=== PATIENT | female | born 1950 | race African-American/Black ===

== ENCOUNTER 2023-03-24 08:04 | Observation (INO) | payer MEDICARE ==
[2023-03-21 12:00] LABS: BASOPHILS % 0.7 % (0.0-1.0); EOSINOPHILS # (AUTO) 0.2 (0.0-0.4); EOSINOPHILS % 2.5 % (0.0-6.0); HEMATOCRIT 36.2 % (34.2-44.1); HEMOGLOBIN 11.2 g/dL (12.0-16.0); LYMPHOCYTES # (AUTO) 1.5 (1.0-3.2); MEAN CORPUSCULAR HEMOGLOBIN 23.3 pg (28-32); MEAN CORPUSCULAR HGB CONC 30.9 g/dL (31-35); MEAN CORPUSCULAR VOLUME 75.4 fL (81-99); MONOCYTES # (AUTO) 0.7 (0.2-0.8); MONOCYTES % 11.1 % (4.4-11.3); NEUTROPHILS # (AUTO) 3.5 (2.1-6.9); PLATELET COUNT 299 x10e3/uL (140-360); RED CELL DISTRIBUTION WIDTH 14.4 % (11.7-14.4)
[2023-03-21 12:20] LABS: CALCIUM 9.6 mg/dL (8.4-10.2); CREATININE, SERUM 0.88 mg/dL (0.57-1.11)
[~2023-03-24 08:04] MED LIST: ASPIRIN325 MG PO; ASPIRIN81 MG PO; GABAPENTIN100 MG PO; HYDROCHLOROTHIA25 MG PO; LISINOPRIL5 MG PO; METAMUCIL FIBE3.4 GM PO; METFORMIN HCL500 MG PO; MULTI-VITAMIN1 EACH PO; OZEMPIC0.25 MG/0. SC; ROPIVACAINE 246.25 MG, EPINEPHRINE HCL 1:1000 1ML 0.5 MG, CLONIDINE HCL 0.08 MG, KETORO... INJ ONE; SIMVASTATIN20 MG PO; SODIUM CHLORIDE 0.9% 500ML 500 ML ONE; TRANEXAMIC ACID 20 ML ONE; Vancomycin IV 1,000 MG ONE
[2023-03-24] MEDS ORDERED: CELECOXIB 200 MG CAP ONE (08:36)
[2023-03-24] MEDS ORDERED: DEXAMETHASONE SOD PHOS 10 MG/1 ML VIAL ONE ×2 (08:37→11:59)
[2023-03-24] MEDS ORDERED: CEFAZOLIN SODIUM 2 GM ONE ×2 (08:37→14:08)
[2023-03-24] MEDS ORDERED: ACETAMINOPHEN 1000 MG/100 ML 100 ML IV ONE (08:37)
[2023-03-24] MEDS ORDERED: GABAPENTIN 300 MG CAP ONE ×2 (08:37→08:42)
[2023-03-24] MEDS ORDERED: LACTATED RINGER'S 1,000 ML ONE (08:38)
[2023-03-24] MEDS ORDERED: FENTANYL CITRATE/PF 100MCG/2 ML INJ ONE ×3 (10:10→12:15)
[2023-03-24] MEDS ORDERED: MIDAZOLAM HCL 2 MG/2 ML VIAL ONE (10:10)
[2023-03-24] MEDS ORDERED: DEXAMETHASONE SOD PHOS INJ 4 MG/ML SDV ONE (10:10)
[2023-03-24] MEDS ORDERED: SEVOFLURANE INHAL SOLN 250 ML PEN BTL ONE (11:54)
[2023-03-24] MEDS ORDERED: KETOROLAC TROMETHAMINE 30 MG/ML VIAL ONE (11:54)
[2023-03-24] MEDS ORDERED: POVIDONE IODINE 0.05% 0.05 % ML PO ONE (11:54)
[2023-03-24] MEDS ORDERED: ONDANSETRON HCL INJ 2MG/ML 2ML 2 MG/ML VIAL ONE (11:54)
[2023-03-24] MEDS ORDERED: PROPOFOL IV EMULSION 10 MG/ML 20 ML VIAL ONE (11:54)
[2023-03-24] MEDS ORDERED: LIDOCAINE HCL 2% LOCAL INJ 5 ML SDV VIAL INJ ONE (11:54)
[2023-03-24] MEDS ORDERED: ROPIVACAINE 0.5% 5 MG/ML 30 ML SDV ONE (11:59)
[2023-03-24] MEDS ORDERED: ACETAMINOPHEN 650 MG SUPP PR PRN (12:00)
[2023-03-24] MEDS ORDERED: DIPHENHYDRAMINE HCL INJ 50 MG/ML VIAL IV PRN (12:00)
[2023-03-24] MEDS ORDERED: SODIUM CHLORIDE 0.9% 1000ML 1,000 ML IV SCH (12:00)
[2023-03-24] MEDS ORDERED: ONDANSETRON HCL INJ 2MG/ML 2ML 2 MG/ML VIAL IV PRN (12:00)
[2023-03-24] MEDS ORDERED: DOCUSATE SODIUM 100 MG CAP PO PRN (12:00)
[2023-03-24] MEDS ORDERED: HYDROCODONE/APAP 5MG-325MG TAB PO PRN (12:00)
[2023-03-24] MEDS ORDERED: HYDROCODONE/APAP 7.5MG-325MG 1 EA TAB PO PRN (12:00)
[2023-03-24] MEDS ORDERED: ZOLPIDEM TARTRATE 5 MG TAB PO PRN (12:00)
[2023-03-24] MEDS ORDERED: FENTANYL CITRATE/PF 100MCG/2 ML INJ IV ONE (12:35)
[2023-03-24 14:20] VITALS: BP 139/74; PULSE 79; RESP 18; O2SAT 95
[2023-03-24] MEDS ORDERED: CELECOXIB 200 MG CAP PO SCH (20:00)
[2023-03-24] MEDS ORDERED: ASPIRIN 325 MG TAB PO SCH (20:00)
[2023-03-25] MEDS ORDERED: ACETAMINOPHEN 1000 MG/100 ML IV PRN (12:00)
== END 2023-03-24 15:54 | disposition home health service (06) ==
LOC: OR 08:04 → PACU V 11:51
PROVIDERS: ADMIT Specialist; ATTEND Specialist
DX: M17.12 Unilateral primary osteoarthritis, left knee (principal); I10 Essential (primary) hypertension; E11.9 Type 2 diabetes mellitus without complications; Z79.84 Long term (current) use of oral hypoglycemic drugs; Z96.651 Presence of right artificial knee joint; Z01.810 Encounter for preprocedural cardiovascular examination; Z01.812 Encounter for preprocedural laboratory examination; Z01.818 Encounter for other preprocedural examination; Z79.899 Other long term (current) drug therapy
CPT/HCPCS: 27447; 36415 ×2; 71046; 73560; 80048; 82948; 85025; 86850; 86900; 86920; 93005; 97116 ×2; 97161; 97530; C1713 ×3; C1776 ×3; G0378; J0131; J0171; J1100 ×2; J1885; J2001; J2250; J2405; J2704; J2795; J3010; J3370; J7040; J7121; J1200; J7030